=== PATIENT | male | born 1955 | race Caucasian/White ===

== ENCOUNTER → 2019-04-19 | Outpatient (CLI) | payer OTHER ==
--- NOTE | 2019-04-19 11:32 | RAD ---
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 TECHNIQUE: Routine multiplanar sequences are obtained. FINDINGS: Mild/moderate motion degradation. There is a surgical screw within the radial tuberosity, presumably from prior biceps tendon repair. There is a high-grade tear/rupture of the biceps tendon. Normal tendon tissue is not identified at the attachment. Tendon tissue is retracted proximally about 2.5 cm. The visualized distal tendon is very thick and amorphous with heterogeneous soft tissue and edema in this area, some which may represent heterotopic ossification described in history, although radiographs are not available for confirmation. There is also likely a component of hematoma or inflammation. Marrow edema within the radius around the anchor screw. Brachialis tendon is intact. The triceps tendon is intact. Common extensor tendon thickening and signal compatible with tendinosis. No evidence of lateral collateral ligament rupture. The common flexor tendon is intact. There is some signal and thickening of the proximal ulnar collateral ligament probably accentuated by the motion rather than a tear. No other areas of bone marrow edema or acute fracture. Ulnar nerve unremarkable. No significant joint effusion. IMPRESSION: 1. Findings are compatible with a recurrent rupture of the distal biceps tendon with 2.5 cm proximal retraction. Abnormal soft tissue around the tear and distal tendon likely due to hemorrhage and/or heterotopic ossification. 2. Mild ill-definition or thickening of the proximal ulnar collateral ligament, may be artifactual due to to the motion degradation, unless there is specific clinical concern for ulnar collateral ligament tear. 3. Common extensor tendinosis. Electronically signed by: Jason Dallas MD (04/19/2019 11:30 AM) [id number]
== END | disposition home or self-care (01) ==
LOC: MRI 09:13
PROVIDERS: ATTEND Orthopaedic Surgery
DX: S46.212A Strain of muscle, fascia and tendon of other parts of biceps, left arm, initial encounter (principal); M61.49 Other calcification of muscle, multiple sites; X58.XXXA Exposure to other specified factors, initial encounter; Y93.89 Activity, other specified; Y92.89 Other specified places as the place of occurrence of the external cause; Y99.8 Other external cause status
CPT/HCPCS: 73221